=== PATIENT | female | born 1960 | race Caucasian/White ===

== ENCOUNTER 2016-07-12 14:35 | Emergency (ER) | payer MEDICARE, MEDICAID ==
[~2016-07-12] VITALS: Ht 160 cm; Wt 73.2 kg
[~2016-07-12 14:35] MED LIST: COUMADIN 22.5 MG/TAB PO; LEVOTHROID0.088 MG PO; LIPITOR40 MG PO; MULTI VITAMINS1 TAB PO; PREVACID 30MG30 M1 PO; PROVENTIL0.09 MG/A1 IH; TRICOR160 MG PO; XYZAL5 MG PO
[2016-07-12 14:47] VITALS: BP 142/89; PULSE 98; TEMP 99
[2016-07-12 15:33] LABS: INFLUENZA B NEGATIVE
[2016-07-12] MEDS ORDERED: AMOXICILLIN875 MG PO (16:04)
[2016-07-12] MEDS ORDERED: FLONASE NASAL S16 GM NS (16:04)
[2016-07-12] MEDS ORDERED: SYNTHROID0.075 MG/T PO (16:06)
== END 2016-07-12 16:16 | disposition home or self-care (01) ==
LOC: COL.ER 14:35
PROVIDERS: Physician Assistant
DX: J32.9 Chronic sinusitis, unspecified (principal)

== ENCOUNTER → 2016-07-14 | Outpatient (CLI) | payer MEDICARE ==
[~2016-07-14] MED LIST changes: +AMOXICILLIN875 MG PO; +FLONASE NASAL S16 GM NS; +SYNTHROID0.075 MG/T PO
== END ==
LOC: MC.RAD 11:20
DX: Z12.31 Encounter for screening mammogram for malignant neoplasm of breast (principal); D24.2 Benign neoplasm of left breast

== ENCOUNTER 2016-12-02 20:14 | Emergency (ER) | payer MEDICARE, MEDICAID ==
[~2016-12-02] VITALS: Ht 160 cm; Wt 73.6 kg
[2016-12-02 20:22] VITALS: BP 143/76; TEMP 97.9
[2016-12-02 22:23] VITALS: PULSE 90
== END 2016-12-02 22:24 | disposition home or self-care (01) ==
LOC: COL.ER 20:14
DX: G43.909 Migraine, unspecified, not intractable, without status migrainosus (principal); E03.9 Hypothyroidism, unspecified; Z86.718 Personal history of other venous thrombosis and embolism; Z79.01 Long term (current) use of anticoagulants; Z90.710 Acquired absence of both cervix and uterus
CPT/HCPCS: J1170; J1200; J2765

== ENCOUNTER → 2016-12-03 | Outpatient (CLI) | payer MEDICARE, MEDICAID | LOC: COL.RAD 07:58 | DX: R90.82 White matter disease, unspecified (principal) | CPT/HCPCS: A9585 ==

== ENCOUNTER → 2017-09-01 | Outpatient (CLI) | payer MEDICARE, MEDICAID | LOC: MC.RAD 08-05 14:00 | DX: Z12.31 Encounter for screening mammogram for malignant neoplasm of breast (principal) ==

== ENCOUNTER 2018-01-08 15:41 | Emergency (ER) | payer MEDICARE, MEDICAID ==
[~2018-01-08] VITALS: Ht 160 cm; Wt 76.4 kg
[2018-01-08 15:44] VITALS: BP 164/79; TEMP 98.1
[2018-01-08] MEDS ORDERED: FIORICET 325 MG1 TA1 PO (16:03)
[2018-01-08] MEDS ORDERED: ZYRTEC 10MG10 MG PO (16:03)
[2018-01-08] MEDS ORDERED: SINGULAIR 110 MG/TAB PO (16:04)
[2018-01-08 16:12] VITALS: PULSE 71
== END 2018-01-08 16:13 | disposition home or self-care (01) ==
LOC: COL.ER 15:41
DX: T63.331A Toxic effect of venom of brown recluse spider, accidental (unintentional), initial encounter (principal); E03.9 Hypothyroidism, unspecified; Z86.718 Personal history of other venous thrombosis and embolism; Z88.2 Allergy status to sulfonamides; Z79.51 Long term (current) use of inhaled steroids; Z79.02 Long term (current) use of antithrombotics/antiplatelets

== ENCOUNTER 2018-06-12 20:54 | Emergency (ER) | payer MEDICARE, MEDICAID ==
[~2018-06-12] VITALS: Ht 160 cm; Wt 73.6 kg
[~2018-06-12 20:54] MED LIST changes: +FIORICET 325 MG1 TA1 PO; +SINGULAIR 110 MG/TAB PO; +ZYRTEC 10MG10 MG PO
[2018-06-12 21:01] VITALS: TEMP 97.9
[2018-06-12] MEDS ORDERED: SYNTHROID 0.0.025 MG PO (21:10)
[2018-06-12 21:32] LABS: BASO # 0.1 (0.0-0.2); BASO % 0.5 % (0.0-2.0); EOS # 0.2 (0.0-0.7); EOS % 2.1 % (0-4.0); GRAN # 5.3 (1.4-6.5); GRAN % 50.3 % (42.2-75.2); HEMATOCRIT 45.5 % (37.0-47.0); HEMOGLOBIN 14.3 g/dl (12.5-16.0); LYMPH # 4.1 (1.2-3.4); LYMPH % 39.6 % (20.0-51.0); MEAN CELL VOLUME 81 fl (80.0-100.0); MEAN CORPUSCULAR HEMOGLOBIN 26 pg (27.0-31.0); MEAN CORPUSCULAR HGB CONC 31 g/dl (33.0-37.0); MONO # 0.8 (0.1-0.6); MONO % 7.3 % (1.7-9.3); PLATELET COUNT 430 K/mm3 (130-400); RED BLOOD COUNT 5.59 M/mm3 (4.10-5.30); REDCELL DISTRIBUTION WIDTH-CV 15.7 % (11.5-14.5)
[2018-06-12 21:39] LABS: PROTHROMBIN TIME 23.3 SECONDS (9.7-12.8)
[2018-06-12 22:12] LABS: COLLECTION METHOD CLEAN CATCH
[2018-06-12 22:15] LABS: ALANINE AMINOTRANSFERASE 27 U/L (9-52); ALBUMIN 4.1 gm/dL (3.5-5.0); ALKALINE PHOSPHATASE 118 U/L (50-136); ANION GAP 11 mmol/L (7-16); AST,SGOT 37 U/L (15-37); BILIRUBIN,TOTAL 0.3 mg/dL (0.0-1.0); BLOOD UREA NITROGEN 15 mg/dL (7-17); C-REACTIVE PROTEIN 1.9 mg/dL (0.0-0.9); CARBON DIOXIDE 24 mmol/L (22-30); CHLORIDE 107 mmol/L (98-107); CREATININE, serum 1.12 mg/dL (0.52-1.25); GLUCOSE 100 mg/dL (74-106); LIPASE 177 U/L (23-300); POTASSIUM 4.1 mmol/L (3.4-5.0); SODIUM 142 mmol/L (137-145); TOTAL PROTEIN 7.7 gm/dL (6.4-8.2)
[2018-06-12 22:18] LABS: MUCOUS Present /lpf; PH 5 (5-8); SQUAMOUS EPITHELIAL 0-2 /hpf; URINE APPEARANCE Clear; URINE BACTERIA Rare /hpf; URINE BILIRUBIN Negative (NEGATIVE); URINE BLOOD 1+ (NEGATIVE); URINE COLOR Yellow; URINE GLUCOSE Negative (NEGATIVE); URINE KETONE Negative (NEGATIVE); URINE LEUKOCYTE ESTERASE Trace (NEGATIVE); URINE NITRATE Negative (NEGATIVE); URINE PROTEIN(semi-quant) Negative (NEGATIVE); URINE UROBILINOGEN Negative (NEGATIVE)
[2018-06-12 22:25] LABS: TROPONIN-I < 0.012 ng/mL (0.000-0.035)
[2018-06-12] MEDS ORDERED: NORCO 325 MG-51 TAB PO (23:27)
[2018-06-13] MEDS ORDERED: AMOXICILLIN 8751 TAB PO (00:07)
[2018-06-13 00:26] VITALS: BP 128/94; PULSE 72
== END 2018-06-13 00:26 | disposition home or self-care (01) ==
LOC: COL.ER 20:54
PROVIDERS: Emergency Medicine
DX: K57.32 Diverticulitis of large intestine without perforation or abscess without bleeding (principal); E78.5 Hyperlipidemia, unspecified; Z87.442 Personal history of urinary calculi; Z86.718 Personal history of other venous thrombosis and embolism; Z79.01 Long term (current) use of anticoagulants
CPT/HCPCS: J1170; J2405; J7030; Q9967

== ENCOUNTER → 2018-10-18 | Outpatient (CLI) | payer MEDICARE, MEDICAID ==
[~2018-10-18] MED LIST changes: +AMOXICILLIN 8751 TAB PO; +NORCO 325 MG-51 TAB PO; +SYNTHROID 0.0.025 MG PO
== END ==
LOC: MC.RAD 14:45
DX: Z12.31 Encounter for screening mammogram for malignant neoplasm of breast (principal)

== ENCOUNTER 2021-01-04 17:46 | Emergency (ER) | payer MEDICARE, MEDICAID ==
[~2021-01-04] VITALS: Ht 160 cm; Wt 75.0 kg
[2021-01-04] MEDS ORDERED: PROAIR HFA0.09 MG/AC IH (22:30)
[2021-01-04 23:16] VITALS: BP 113/87; PULSE 86; TEMP 99
== END 2021-01-04 23:16 | disposition home or self-care (01) ==
LOC: COL.ER 17:46
DX: U07.1 COVID-19 (principal); J12.82 Pneumonia due to coronavirus disease 2019; J45.909 Unspecified asthma, uncomplicated; Z79.899 Other long term (current) drug therapy; Z79.01 Long term (current) use of anticoagulants

== ENCOUNTER 2021-01-11 20:51 | Emergency (ER) | payer MEDICARE, MEDICAID ==
[~2021-01-11] VITALS: Ht 160 cm; Wt 75.0 kg
[~2021-01-11 20:51] MED LIST changes: +PROAIR HFA0.09 MG/AC IH
[2021-01-11 20:54] VITALS: TEMP 99.9
[2021-01-11 21:17] LABS: BASO % 0.2 % (0.0-2.0); GRAN % 73.2 % (42.2-75.2); HEMATOCRIT 44.2 % (37.0-47.0); HEMOGLOBIN 14.8 g/dl (12.5-16.0); LYMPH # 1.9 (1.2-3.4); LYMPH % 19.5 % (20.0-51.0); MEAN CELL VOLUME 81 fl (80.0-100.0); MEAN CORPUSCULAR HEMOGLOBIN 27 pg (27.0-31.0); MEAN CORPUSCULAR HGB CONC 34 g/dl (33.0-37.0); MEAN PLATELET VOLUME 9.3 fl (7.4-10.4); MONO # 0.7 (0.1-0.6); MONO % 6.9 % (1.7-9.3); PLATELET COUNT 340 K/mm3 (130-400); RED BLOOD COUNT 5.48 M/mm3 (4.10-5.30)
[2021-01-11 21:28] LABS: ALBUMIN 4.1 gm/dL (3.5-5.0); BILIRUBIN,TOTAL 0.7 mg/dL (0.0-1.0); CALCIUM 9.7 mg/dL (8.4-10.2); CREATININE, serum 1.03 (0.52-1.25); POTASSIUM 3.7 mmol/L (3.4-5.0); TOTAL PROTEIN 7.8 gm/dL (6.4-8.2)
[2021-01-11] MEDS ORDERED: ZOFRAN ODT4 MG PO (22:25)
[2021-01-11] MEDS ORDERED: AMOXICILLIN 8751 TAB PO (22:25)
[2021-01-11] MEDS ORDERED: PREDNISONE20 MG PO (22:25)
[2021-01-11 23:15] VITALS: BP 104/84; PULSE 86
== END 2021-01-11 23:22 | disposition home or self-care (01) ==
LOC: COL.ER 20:51
PROVIDERS: Personal Emergency Response Attendant
DX: U07.1 COVID-19 (principal); J12.82 Pneumonia due to coronavirus disease 2019; J45.909 Unspecified asthma, uncomplicated; Z79.899 Other long term (current) drug therapy
CPT/HCPCS: J0456; J0696; J2405; J2930; J7030; J7050

== ENCOUNTER → 2023-04-17 | Outpatient (CLI) | payer MEDICARE, MEDICAID ==
[~2023-04-17] MED LIST changes: +PREDNISONE20 MG PO; +ZOFRAN ODT4 MG PO
== END ==
LOC: MC.RAD 13:57
DX: N60.12 Diffuse cystic mastopathy of left breast (principal)

== ENCOUNTER → 2023-05-05 | Outpatient (CLI) | payer MEDICARE | LOC: MC.RAD 09:40 | DX: R92.8 Other abnormal and inconclusive findings on diagnostic imaging of breast (principal) ==